=== PATIENT | female | born 1975 | race Caucasian/White ===

== ENCOUNTER 2024-08-14 06:27 | Outpatient (CLI) | payer BC, SELFPAY ==
--- NOTE | 2024-08-14 07:40 | W.ANESCHARGE ---
Anesthesia Charges Start Date/Time Anesthesia Start Date: 08/14/24 Anesthesia Start Time: 07:15 Stop Date/Time Anesthesia Stop Date: 08/14/24 Anesthesia Stop Time: 07:38
== END 2024-08-14 06:28 | disposition home or self-care (01) ==
LOC: OP CLINIC 06:31
PROVIDERS: PCP Family Medicine; Visit Provider Internal Medicine Gastroenterology
DX: Z12.11 Encounter for screening for malignant neoplasm of colon (principal)
CPT/HCPCS: 00812; 45378; J2704